=== PATIENT | female | born 1980 | race Caucasian/White ===

== ENCOUNTER 2021-05-27 03:30 | Inpatient (IN) | payer BC ==
[~2021-05-27] VITALS: Ht 165.1 cm; Wt 176.5 kg
[~2021-05-27 03:30] MED LIST: ALDOMET PO; CLEOCIN150 MG PO; DELTASONE20 M1 PO; DULCOLAX5 MG PO; KEFLEX500 MG PO; MACROBID100 M1 PO; MOTRIN 800 MG E4 TAB PO; MOTRIN600 MG PO; MOTRIN800 MG PO; MYLICON, MYLANT80 MG PO; PEPCID20 MG PO; PERCOCET 325 MG1 TA5 PO; PRENATAL VITAMIN; PROAIR HFA8.5 GM IH; PYRIDIUM200 MG PO; ROBITUSSIN AC 110 ML PO; TRAMADOL HCL50 MG PO; TRIMOX500 MG PO
[2021-05-27 05:52] LABS: ALBUMIN 2.7 gm/dl (3.1-4.5); ALKALINE PHOSPHATASE 70 U/L (45-117); BUN 14 mg/dl (7-24); CHLORIDE 104 mmol/L (98-107); CREATININE 0.82 mg/dL (0.55-1.02); POTASSIUM 3.2 mmol/L (3.5-5.1); SGOT/AST 30 IU/L (3-35); SGPT/ALT 28 U/L (12-78); SODIUM 135 mmol/L (136-145); TOTAL PROTEIN 7.5 gm/dL (6.4-8.2)
[2021-05-27 06:10] LABS: BASO % 0.1 % (0.0-1.0); EOS % 0.1 % (1.0-4.0); HEMATOCRIT 37.4 % (37.0-47.0); LYMPH # 0.7 10*3/uL (1.3-4.4); LYMPH % 9.1 % (27.0-41.0); MEAN CELL VOLUME 74.1 fl (81.0-99.0); MEAN CORPUSCULAR HGB CONC 28.3 g/dl (33.0-37.0); MEAN PLATELET VOLUME 10.8 fl (9.6-12.3); MONO # 0.3 10*3/uL (0.1-1.0); MONO % 3.9 % (3.0-9.0); NEUT # 6.8 10*3/uL (2.3-7.9); NEUT % 86.3 % (47.0-73.0); PLATELET COUNT AUTOMATED 279 10*3/uL (130-400); RED BLOOD COUNT 5.05 10*6/uL (4.10-5.10); RED CELL DISTRI WIDTH 19.8 % (0-14.5); WHITE BLOOD COUNT 7.9 10*3/uL (4.8-10.8)
[2021-05-27 07:44] VITALS: BP 124/69
[2021-05-27 12:21] VITALS: BP 128/71
[2021-05-27 17:13] VITALS: BP 124/70
[2021-05-27 20:40] VITALS: BP 128/72
[2021-05-27 23:38] VITALS: BP 131/74
[2021-05-28 00:50] VITALS: BP 158/86
[2021-05-28 05:54] LABS: ALBUMIN 2.6 gm/dl (3.1-4.5); BUN 14 mg/dl (7-24); CHLORIDE 103 mmol/L (98-107); CHOLESTEROL 151 mg/dL (<200); CREATININE 0.81 mg/dL (0.55-1.02); POTASSIUM 3.3 mmol/L (3.5-5.1); SGOT/AST 33 IU/L (3-35); SGPT/ALT 30 U/L (12-78); SODIUM 135 mmol/L (136-145); TOTAL PROTEIN 7.5 gm/dL (6.4-8.2); TRIGLYCERIDES 77 mg/dl (<150)
[2021-05-28 05:59] LABS: ALKALINE PHOSPHATASE 67 U/L (45-117); LDL CHOLESTEROL 96 mg/dL (9-159)
[2021-05-28 06:12] LABS: HEMATOCRIT 37.5 % (37.0-47.0); MEAN CELL VOLUME 74.3 fl (81.0-99.0); MEAN CORPUSCULAR HGB 20.8 pg (27.0-31.0); MEAN PLATELET VOLUME 10.7 fl (9.6-12.3); PLATELET COUNT AUTOMATED 262 10*3/uL (130-400); RED BLOOD COUNT 5.05 10*6/uL (4.10-5.10); WHITE BLOOD COUNT 6.3 10*3/uL (4.8-10.8)
[2021-05-28 06:18] LABS: ACT PARTIAL THROMBO TIME 28.6 SECONDS (20.0-32.1); INTERNATIONAL NORM RATIO 1.1 (2.0-3.5)
[2021-05-28 06:50] LABS: ATYPICAL LYMPHS 1 % (0-0); MICROCYTOSIS SLIGHT; OVALOCYTES FEW; PLATELET SUFFICIENCY NORMAL (NORMAL); POLYCHROMASIA SLIGHT; SCHISTOCYTES FEW; TOTAL CELLS COUNTED 100 #CELLS
[2021-05-28 08:00] VITALS: BP 120/78
[2021-05-28 10:04] LABS: VITAMIN D, 25-HYDROXY 8.7 ng/mL (30-100)
[2021-05-28 12:00] VITALS: BP 122/62
[2021-05-28 16:00] VITALS: BP 123/59
[2021-05-28 20:00] VITALS: BP 115/59
[2021-05-29] VITALS: BP 133/85
[2021-05-29 06:22] LABS: BASO % 0.2 % (0.0-1.0); EOS % 0.2 % (1.0-4.0); HEMATOCRIT 39.6 % (37.0-47.0); LYMPH # 0.9 10*3/uL (1.3-4.4); LYMPH % 18.7 % (27.0-41.0); MEAN CELL VOLUME 74.2 fl (81.0-99.0); MEAN CORPUSCULAR HGB 20.2 pg (27.0-31.0); MEAN CORPUSCULAR HGB CONC 27.3 g/dl (33.0-37.0); MEAN PLATELET VOLUME 10.6 fl (9.6-12.3); MONO # 0.5 10*3/uL (0.1-1.0); MONO % 8.9 % (3.0-9.0); NEUT # 3.6 10*3/uL (2.3-7.9); NEUT % 71.2 % (47.0-73.0); PLATELET COUNT AUTOMATED 283 10*3/uL (130-400); RED BLOOD COUNT 5.34 10*6/uL (4.10-5.10); RED CELL DISTRI WIDTH 19.9 % (0-14.5)
[2021-05-29 06:35] LABS: ALBUMIN 2.6 gm/dl (3.1-4.5); ALKALINE PHOSPHATASE 69 U/L (45-117); BUN 14 mg/dl (7-24); CHLORIDE 103 mmol/L (98-107); CREATININE 0.76 mg/dL (0.55-1.02); LDH 502 U/L (84-246); POTASSIUM 3.7 mmol/L (3.5-5.1); SGOT/AST 35 IU/L (3-35); SGPT/ALT 31 U/L (12-78); SODIUM 139 mmol/L (136-145); TOTAL PROTEIN 7.8 gm/dL (6.4-8.2)
[2021-05-29 06:36] LABS: CPK 167 U/L (26-192)
[2021-05-29 08:00] VITALS: BP 158/86
[2021-05-29 12:00] VITALS: BP 136/82
[2021-05-29 13:00] VITALS: BP 136/82
[2021-05-29 16:00] VITALS: BP 126/77
[2021-05-29 20:00] VITALS: BP 134/98; BP 96/53
[2021-05-30] VITALS: BP 147/80
[2021-05-30 04:00] VITALS: BP 126/76
[2021-05-30 06:33] LABS: EOS % 0.1 % (1.0-4.0); HEMATOCRIT 38.2 % (37.0-47.0); LYMPH % 15.2 % (27.0-41.0); MEAN CELL VOLUME 75.6 fl (81.0-99.0); MEAN CORPUSCULAR HGB 20.6 pg (27.0-31.0); MEAN CORPUSCULAR HGB CONC 27.2 g/dl (33.0-37.0); MEAN PLATELET VOLUME 10.4 fl (9.6-12.3); MONO # 0.6 10*3/uL (0.1-1.0); MONO % 9.6 % (3.0-9.0); NEUT % 74.5 % (47.0-73.0); PLATELET COUNT AUTOMATED 317 10*3/uL (130-400); RED BLOOD COUNT 5.05 10*6/uL (4.10-5.10); RED CELL DISTRI WIDTH 19.9 % (0-14.5); WHITE BLOOD COUNT 6.7 10*3/uL (4.8-10.8)
[2021-05-30 06:49] LABS: ALBUMIN 2.5 gm/dl (3.1-4.5); ALKALINE PHOSPHATASE 66 U/L (45-117); BUN 14 mg/dl (7-24); CHLORIDE 106 mmol/L (98-107); CREATININE 0.75 mg/dL (0.55-1.02); LDH 458 U/L (84-246); POTASSIUM 3.8 mmol/L (3.5-5.1); SGPT/ALT 33 U/L (12-78); SODIUM 140 mmol/L (136-145); TOTAL PROTEIN 7.4 gm/dL (6.4-8.2)
[2021-05-30 07:09] LABS: SGOT/AST 36 IU/L (3-35)
[2021-05-30 08:00] VITALS: BP 128/68
[2021-05-30 11:52] VITALS: BP 137/76
[2021-05-30 15:59] VITALS: BP 141/88
[2021-05-30 20:00] VITALS: BP 120/78
[2021-05-31] VITALS: BP 134/83
[2021-05-31 04:00] VITALS: BP 121/71
[2021-05-31 05:51] LABS: ALBUMIN 2.5 gm/dl (3.1-4.5); BUN 15 mg/dl (7-24); CHLORIDE 103 mmol/L (98-107); CREATININE 0.72 mg/dL (0.55-1.02); POTASSIUM 3.6 mmol/L (3.5-5.1); SGOT/AST 34 IU/L (3-35); SGPT/ALT 31 U/L (12-78); SODIUM 140 mmol/L (136-145); TOTAL PROTEIN 7.5 gm/dL (6.4-8.2)
[2021-05-31 05:52] LABS: ALKALINE PHOSPHATASE 62 U/L (45-117)
[2021-05-31 06:11] LABS: MEAN CELL VOLUME 76.1 fl (81.0-99.0); MEAN CORPUSCULAR HGB CONC 27.6 g/dl (33.0-37.0); MEAN PLATELET VOLUME 11.2 fl (9.6-12.3); PLATELET COUNT AUTOMATED 339 10*3/uL (130-400); RED BLOOD COUNT 4.86 10*6/uL (4.10-5.10); RED CELL DISTRI WIDTH 19.8 % (0-14.5)
[2021-05-31 07:25] LABS: ATYPICAL LYMPHS 2 % (0-0); MICROCYTOSIS SLIGHT; OVALOCYTES FEW; PLATELET SUFFICIENCY NORMAL (NORMAL); POLYCHROMASIA SLIGHT; TOTAL CELLS COUNTED 100 #CELLS
[2021-05-31 08:00] VITALS: BP 111/62
[2021-05-31 12:00] VITALS: BP 131/74
[2021-05-31 16:00] VITALS: BP 130/78
[2021-05-31 20:00] VITALS: BP 141/84
[2021-06-01] VITALS: BP 147/80
[2021-06-01 04:00] VITALS: BP 135/89
[2021-06-01 05:48] LABS: ALBUMIN 2.4 gm/dl (3.1-4.5); BUN 14 mg/dl (7-24); CHLORIDE 105 mmol/L (98-107); CREATININE 0.67 mg/dL (0.55-1.02); POTASSIUM 3.7 mmol/L (3.5-5.1); SGOT/AST 26 IU/L (3-35); SGPT/ALT 34 U/L (12-78); SODIUM 139 mmol/L (136-145); TOTAL PROTEIN 7.4 gm/dL (6.4-8.2)
[2021-06-01 05:49] LABS: ALKALINE PHOSPHATASE 60 U/L (45-117)
[2021-06-01 08:00] VITALS: BP 113/71
[2021-06-01 12:00] VITALS: BP 116/77
[2021-06-01 16:00] VITALS: BP 119/60
[2021-06-01 20:00] VITALS: BP 117/61
[2021-06-02] VITALS: BP 120/68
[2021-06-02 07:07] LABS: ALBUMIN 2.5 gm/dl (3.1-4.5); ALKALINE PHOSPHATASE 57 U/L (45-117); BUN 13 mg/dl (7-24); CHLORIDE 106 mmol/L (98-107); POTASSIUM 3.5 mmol/L (3.5-5.1); SGOT/AST 18 IU/L (3-35); SGPT/ALT 30 U/L (12-78); SODIUM 140 mmol/L (136-145); TOTAL PROTEIN 7.2 gm/dL (6.4-8.2)
[2021-06-02 08:00] VITALS: BP 136/75
[2021-06-02 12:00] VITALS: BP 124/64
[2021-06-02 16:00] VITALS: BP 128/76
[2021-06-02 20:00] VITALS: BP 125/71
[2021-06-03] VITALS: BP 122/71
[2021-06-03 06:10] LABS: ALBUMIN 2.5 gm/dl (3.1-4.5); BUN 14 mg/dl (7-24); CHLORIDE 103 mmol/L (98-107); POTASSIUM 3.6 mmol/L (3.5-5.1); SGOT/AST 14 IU/L (3-35); SGPT/ALT 31 U/L (12-78); SODIUM 136 mmol/L (136-145); TOTAL PROTEIN 7.4 gm/dL (6.4-8.2)
[2021-06-03 06:11] LABS: ALKALINE PHOSPHATASE 60 U/L (45-117); BASO % 0.2 % (0.0-1.0); CREATININE 0.77 mg/dL (0.55-1.02); EOS % 0.4 % (1.0-4.0); HEMATOCRIT 38.2 % (37.0-47.0); LYMPH # 0.6 10*3/uL (1.3-4.4); LYMPH % 5.2 % (27.0-41.0); MEAN CELL VOLUME 75.5 fl (81.0-99.0); MEAN CORPUSCULAR HGB 20.9 pg (27.0-31.0); MEAN CORPUSCULAR HGB CONC 27.7 g/dl (33.0-37.0); MEAN PLATELET VOLUME 10.6 fl (9.6-12.3); MONO # 0.7 10*3/uL (0.1-1.0); MONO % 5.9 % (3.0-9.0); NEUT # 9.5 10*3/uL (2.3-7.9); NEUT % 86.8 % (47.0-73.0); PLATELET COUNT AUTOMATED 320 10*3/uL (130-400); RED BLOOD COUNT 5.06 10*6/uL (4.10-5.10); RED CELL DISTRI WIDTH 19.7 % (0-14.5)
[2021-06-03 08:00] VITALS: BP 96/52
[2021-06-03 12:00] VITALS: BP 106/59
[2021-06-03 16:00] VITALS: BP 105/66
[2021-06-03 20:00] VITALS: BP 119/71
[2021-06-04] VITALS: BP 109/75
[2021-06-04 06:20] LABS: BASO % 0.1 % (0.0-1.0); EOS # 0.1 10*3/uL (0.0-0.4); EOS % 0.9 % (1.0-4.0); HEMATOCRIT 35.2 % (37.0-47.0); LYMPH % 11.5 % (27.0-41.0); MEAN CELL VOLUME 73.5 fl (81.0-99.0); MEAN CORPUSCULAR HGB 21.3 pg (27.0-31.0); MEAN PLATELET VOLUME 10.9 fl (9.6-12.3); MONO # 0.9 10*3/uL (0.1-1.0); MONO % 10.8 % (3.0-9.0); NEUT # 6.2 10*3/uL (2.3-7.9); NEUT % 75.4 % (47.0-73.0); PLATELET COUNT AUTOMATED 332 10*3/uL (130-400); RED BLOOD COUNT 4.79 10*6/uL (4.10-5.10); RED CELL DISTRI WIDTH 19.5 % (0-14.5); WHITE BLOOD COUNT 8.2 10*3/uL (4.8-10.8)
[2021-06-04 06:26] LABS: CHLORIDE 101 mmol/L (98-107); POTASSIUM 3.5 mmol/L (3.5-5.1); SODIUM 135 mmol/L (136-145)
[2021-06-04 06:35] LABS: ALBUMIN 2.3 gm/dl (3.1-4.5); ALKALINE PHOSPHATASE 56 U/L (45-117); BUN 13 mg/dl (7-24); CREATININE 0.78 mg/dL (0.55-1.02); LDH 293 U/L (84-246); SGOT/AST 17 IU/L (3-35); SGPT/ALT 27 U/L (12-78); TOTAL PROTEIN 7.3 gm/dL (6.4-8.2)
[2021-06-04 08:00] VITALS: BP 116/65
[2021-06-04 12:00] VITALS: BP 120/62
[2021-06-04 16:00] VITALS: BP 125/65
[2021-06-04 20:00] VITALS: BP 102/81
[2021-06-05] VITALS: BP 120/74
[2021-06-05 06:33] LABS: BASO % 0.1 % (0.0-1.0); EOS # 0.1 10*3/uL (0.0-0.4); EOS % 0.5 % (1.0-4.0); HEMATOCRIT 37.1 % (37.0-47.0); LYMPH # 1.4 10*3/uL (1.3-4.4); LYMPH % 13.8 % (27.0-41.0); MEAN CELL VOLUME 74.8 fl (81.0-99.0); MEAN CORPUSCULAR HGB 20.8 pg (27.0-31.0); MEAN CORPUSCULAR HGB CONC 27.8 g/dl (33.0-37.0); MEAN PLATELET VOLUME 11.2 fl (9.6-12.3); MONO # 0.9 10*3/uL (0.1-1.0); NEUT # 7.7 10*3/uL (2.3-7.9); NEUT % 74.9 % (47.0-73.0); PLATELET COUNT AUTOMATED 363 10*3/uL (130-400); RED BLOOD COUNT 4.96 10*6/uL (4.10-5.10); RED CELL DISTRI WIDTH 19.7 % (0-14.5); WHITE BLOOD COUNT 10.2 10*3/uL (4.8-10.8)
[2021-06-05 08:00] VITALS: BP 114/68
[2021-06-05 12:00] VITALS: BP 110/62
[2021-06-05] MEDS ORDERED: VITAMIN D350 MC2 PO (12:16)
[2021-06-05] MEDS ORDERED: DECADRON4 MG PO (12:16)
== END 2021-06-05 14:11 | disposition home health service (06) | DRG 871 ==
LOC: ED 03:30 → 4E 06:50 → EDHOLD 06:50 → ICCU 06:50 → EDHOLD 07:00 → 4E 23:50 → ICCU 05-29 12:10 → 4E 06-01 14:27
PROVIDERS: Emergency Medicine; Hospitalist; Internal Medicine; Internal Medicine Critical Care Medicine; ADMIT Internal Medicine; ATTEND Internal Medicine
PROC: XW033E5 Introduction of Remdesivir Anti-infective into Peripheral Vein, Percutaneous Approach, New Technology Group 5 (ICD-10-PCS; principal; 2021-05-27)
PROC: 5A09357 Assistance with Respiratory Ventilation, Less than 24 Consecutive Hours, Continuous Positive Airway Pressure (ICD-10-PCS; 2021-05-29)
PROC: 5A0935A Assistance with Respiratory Ventilation, Less than 24 Consecutive Hours, High Flow/Velocity Cannula (ICD-10-PCS; 2021-05-30)
PROC: 5A09357 Assistance with Respiratory Ventilation, Less than 24 Consecutive Hours, Continuous Positive Airway Pressure (ICD-10-PCS; 2021-05-31)
PROC: 5A0935A Assistance with Respiratory Ventilation, Less than 24 Consecutive Hours, High Flow/Velocity Cannula (ICD-10-PCS; 2021-05-31)
PROC: 5A09357 Assistance with Respiratory Ventilation, Less than 24 Consecutive Hours, Continuous Positive Airway Pressure (ICD-10-PCS; 2021-06-01)
PROC: 5A0935A Assistance with Respiratory Ventilation, Less than 24 Consecutive Hours, High Flow/Velocity Cannula (ICD-10-PCS; 2021-06-01)
PROC: 5A09357 Assistance with Respiratory Ventilation, Less than 24 Consecutive Hours, Continuous Positive Airway Pressure (ICD-10-PCS; 2021-06-02)
PROC: 5A0935A Assistance with Respiratory Ventilation, Less than 24 Consecutive Hours, High Flow/Velocity Cannula (ICD-10-PCS; 2021-06-02)
PROC: 5A09357 Assistance with Respiratory Ventilation, Less than 24 Consecutive Hours, Continuous Positive Airway Pressure (ICD-10-PCS; 2021-06-03)
PROC: 5A0935A Assistance with Respiratory Ventilation, Less than 24 Consecutive Hours, High Flow/Velocity Cannula (ICD-10-PCS; 2021-06-03)
PROC: 5A09357 Assistance with Respiratory Ventilation, Less than 24 Consecutive Hours, Continuous Positive Airway Pressure (ICD-10-PCS; 2021-06-04)
PROC: 5A09357 Assistance with Respiratory Ventilation, Less than 24 Consecutive Hours, Continuous Positive Airway Pressure (ICD-10-PCS; 2021-06-05)
DX: A41.89 Other specified sepsis (principal); U07.1 COVID-19; J12.82 Pneumonia due to coronavirus disease 2019; E43 Unspecified severe protein-calorie malnutrition; J96.01 Acute respiratory failure with hypoxia; E87.1 Hypo-osmolality and hyponatremia; Z68.43 Body mass index [BMI] 50.0-59.9, adult; E87.6 Hypokalemia; R73.9 Hyperglycemia, unspecified; E66.01 Morbid (severe) obesity due to excess calories; D50.9 Iron deficiency anemia, unspecified; J45.909 Unspecified asthma, uncomplicated; Z98.891 History of uterine scar from previous surgery; Z79.51 Long term (current) use of inhaled steroids; Z79.899 Other long term (current) drug therapy

== ENCOUNTER 2021-06-14 20:21 | Emergency (ER) | payer BC ==
[~2021-06-14] VITALS: Ht 175.2 cm; Wt 175.1 kg
[~2021-06-14 20:21] MED LIST changes: +DECADRON4 MG PO; +VITAMIN D350 MC2 PO
[2021-06-14 20:34] VITALS: BP 152/90
[2021-06-14] MEDS ORDERED: METHOCARBAMOL500 M1 PO (22:30)
[2021-06-14] MEDS ORDERED: IBUPROFEN600 MG PO (22:30)
== END 2021-06-14 22:38 | disposition home or self-care (01) ==
LOC: ED 20:21
DX: M25.512 Pain in left shoulder (principal)

== ENCOUNTER 2021-07-13 20:31 | Emergency (ER) | payer BC ==
[~2021-07-13] VITALS: Ht 175.2 cm; Wt 172.8 kg
[~2021-07-13 20:31] MED LIST changes: +IBUPROFEN600 MG PO; +METHOCARBAMOL500 M1 PO
[2021-07-13 20:35] VITALS: BP 144/91
== END 2021-07-14 00:13 | disposition home or self-care (01) ==
LOC: ED 20:31
DX: S80.12XA Contusion of left lower leg, initial encounter (principal); X58.XXXA Exposure to other specified factors, initial encounter; Y93.89 Activity, other specified; Y92.89 Other specified places as the place of occurrence of the external cause; Y99.8 Other external cause status

== ENCOUNTER → 2021-07-16 | Outpatient (CLI) | payer BC | END | disposition home or self-care (01) | LOC: RAD 12:33 | PROVIDERS: ATTEND Nurse Practitioner Family | DX: U07.1 COVID-19 (principal); J12.82 Pneumonia due to coronavirus disease 2019; Z99.81 Dependence on supplemental oxygen; M25.512 Pain in left shoulder ==

== ENCOUNTER → 2025-02-25 | Outpatient (CLI) | payer OTHER ==
[2025-02-25 09:20] LABS: MEAN CELL VOLUME 74.1 fl (81.0-99.0); MEAN CORPUSCULAR HGB 20.2 pg (27.0-31.0); MEAN PLATELET VOLUME 10.9 fl (9.6-12.3); NUCLEATED RED BLOOD CELL 0.0 % (0.0-0.0); NUCLEATED RED BLOOD CELL 0.0 10*3/uL (0.0-0.0); PLATELET COUNT AUTOMATED 290 10*3/uL (130-400); RED CELL DISTRI WIDTH 20.2 % (0-14.5)
[2025-02-25 09:38] LABS: MANUAL DIFF REFLEX YES
[2025-02-25 09:40] LABS: BASOPHILS 1 % (0-1); PLATELET SUFFICIENCY NORMAL (NORMAL)
[2025-02-25 09:41] LABS: BUN 8 mg/dl (9-23); LDL CHOLESTEROL 108 mg/dL (9-159)
[2025-02-25 09:42] LABS: SGPT/ALT < 7 U/L (5-49)
== END | disposition home or self-care (01) ==
LOC: LAB 08:40
PROVIDERS: ATTEND Nurse Practitioner Family
DX: I10 Essential (primary) hypertension (principal); H66.93 Otitis media, unspecified, bilateral; Z13.220 Encounter for screening for lipoid disorders; Z13.1 Encounter for screening for diabetes mellitus; Z13.29 Encounter for screening for other suspected endocrine disorder; Z76.89 Persons encountering health services in other specified circumstances